=== PATIENT | female | born 1940 | race Caucasian/White ===

== ENCOUNTER 2020-10-03 20:17 | Emergency (ER) | payer MEDICARE ==
[2020-10-03] MEDS ORDERED: methylPREDNISolone SOD SUCCI 125 MG/2 ML VIAL IM STA (20:31)
[2020-10-03] MEDS ORDERED: diphenhydrAMINE 50 MG/ML 1 ML VIAL IM STA (20:31)
--- NOTE | 2020-10-03 20:37 | ED ---
General Adult HPI - General Chief complaint: Allergic Reaction Stated complaint: Bee sting Time Seen by Provider: 10/03/20 20:23 Source: patient, RN notes reviewed Mode of arrival: ambulatory Limitations: no limitations - History of Present Illness Initial comments: Patient is a pleasant 80-year-old female presenting to the emergency department following bee sting. Patient was working in the yard when she suddenly grabbed a bee that stung her and her left palm. Patient has had swelling increased over the past few hours since then. There is mild discomfort associated. Patient did take Claritin without much improvement of symptoms. No swelling of the eyes or lips or tongue or throat. No dyspnea. Patient does have history of swelling to the hand previously also following a bee sting. Patient states previously Benadryl shot has helped her and does request this. - Related Data Home Medications Medication Instructions Recorded Confirmed Aspirin EC [Ecotrin] 81 mg PO DAILY 02/06/15 02/06/15 Omeprazole [PriLOSEC] 20 mg PO AC-BRKFST 02/06/15 02/06/15 lisinopriL [Prinivil] 20 mg PO DAILY 02/06/15 02/06/15 Previous Rx's Medication Instructions Recorded predniSONE [Deltasone] 20 mg PO BID #8 tab 10/03/20 Allergies Allergy/AdvReac Type Severity Reaction Status Date / Time Penicillins Allergy Unknown Verified 10/03/20 20:21 Childhood Review of Systems ROS Statement: Those systems with pertinent positive or pertinent negative responses have been documented in the HPI. ROS Other: All systems not noted in ROS Statement are negative. Constitutional: Denies: fever Eyes: Denies: eye pain ENT: Denies: ear pain Respiratory: Denies: cough, dyspnea Cardiovascular: Denies: chest pain Endocrine: Denies: fatigue Gastrointestinal: Denies: abdominal pain Genitourinary: Denies: dysuria Musculoskeletal: Denies: back pain Skin: Denies: rash Neurological: Denies: weakness Past Medical History Past Medical History: Hypertension History of Any Multi-Drug Resistant Organisms: None Reported Past Surgical History: Cholecystectomy Additional Past Surgical History / Comment(s): bilateral arthroscopic Past Psychological History: No Psychological Hx Reported Past Alcohol Use History: Occasional Past Drug Use History: None Reported General Exam Limitations: no limitations General appearance: alert Head exam: Present: normocephalic Eye exam: Present: normal appearance, PERRL ENT exam: Present: normal oropharynx, other (No signs of angioedema of the face or lips or tongue or pharynx.) Neck exam: Present: normal inspection Respiratory exam: Present: normal lung sounds bilaterally. Absent: respiratory distress, wheezes Cardiovascular Exam: Present: regular rate, normal rhythm GI/Abdominal exam: Present: soft. Absent: tenderness Extremities exam: Present: other (Left hand and wrist edema. Cap refill less than 2 seconds. No erythema or tenderness.) Neurological exam: Present: alert Psychiatric exam: Present: normal affect, normal mood Skin exam: Present: normal color Course Vital Signs 10/03/20 20:17 Temperature 97.9 F Pulse Rate 82 Respiratory 18 Rate Blood Pressure 164/84 O2 Sat by Pulse 98 Oximetry Disposition Clinical Impression: Hymenoptera reaction Disposition: HOME SELF-CARE Condition: Stable Instructions (If sedation given, give patient instructions): Insect Bite or Sting (ED) Additional Instructions: Continue [id number] Claritin or Benadryl. Prescription for steroid has been sent to your pharmacy, [facility] on . Return for increase swelling or pain or redness, or swelling to the face or throat or tongue or lips or difficulty in breathing. Prescriptions: predniSONE [Deltasone] 20 mg PO BID #8 tab Is patient prescribed a controlled substance at d/c from ED?: No Referrals: Ramone Drew DO [Primary Care Provider] - 1-2 days Time of Disposition: 20:35
[2020-10-03 21:17] VITALS: RESP 20
[2020-10-03 21:26] VITALS: BP 154/87; PULSE 81; TEMP 98.1
== END 2020-10-03 21:24 | disposition home or self-care (01) ==
LOC: EC 20:17
DX: T63.441A Toxic effect of venom of bees, accidental (unintentional), initial encounter (principal); I10 Essential (primary) hypertension; Z79.82 Long term (current) use of aspirin; Z79.899 Other long term (current) drug therapy; Z88.0 Allergy status to penicillin
CPT/HCPCS: 99283; 96372 ×2; J1200; J2930

== ENCOUNTER → 2021-08-09 | Outpatient (CLI) | payer MEDICARE ==
--- NOTE | 2021-08-09 09:47 | MR ---
EXAMINATION TYPE: MR iac wo/w con DATE OF EXAM: 08/09/2021 COMPARISON: CT brain 05/24/2013 HISTORY: Vertigo loss hearing loss TECHNIQUE: Multiplanar, multisequence images of the brain and brainstem is performed without and with IV contras t, utilizing 9.5 mL intravenous Gadavist . FINDINGS: Diffusion weighted images demonstrate no evidence of a recent infarct or other diffusion ab normality. There mild to moderate generalized degenerative change with diffuse focal areas of abnorm al signal scattered throughout the white matter bilaterally most typical remote white matter ischemia . Midline structures demonstrate normal morphology. The craniocervical junction appears within normal limits. Post contrast images demonstrate no abnormal enhancement. No evidence of cerebellopontine an gle mass. The dural venous sinuses appear patent. Changes of chronic sinusitis are noted. Orbits are symmetric. Mastoid air cells appear clear. IMPRESSION: 1. No diagnostic evidence of cerebellopontine angle mass or schwannoma.
== END | disposition home or self-care (01) ==
LOC: RADMRIMAIN 08:33
PROVIDERS: ATTEND Otolaryngology
DX: R42 Dizziness and giddiness (principal); H91.90 Unspecified hearing loss, unspecified ear
CPT/HCPCS: 70553; A9585

== ENCOUNTER → 2021-08-15 | Outpatient (CLI) | payer MEDICARE ==
--- NOTE | 2021-08-15 14:51 | US ---
EXAMINATION TYPE: US venous doppler duplex UE LT DATE OF EXAM: 08/15/2021 COMPARISON: NONE CLINICAL HISTORY: M79.602 Pain in left arm. Pain after vaccine SIDE PERFORMED: Left arm Left Arm: Negative for DVT IMPRESSION: 1. Left upper extremity negative for deep venous thrombosis.
== END | disposition home or self-care (01) ==
LOC: RADUSWWP 13:52
PROVIDERS: ATTEND Family Medicine
DX: M79.602 Pain in left arm (principal)

== ENCOUNTER → 2022-07-18 | Outpatient (CLI) | payer MEDICARE ==
--- NOTE | 2022-07-18 13:58 | MM ---
Reason for Exam: Follow-up at short interval from prior study. Last screening mammogram was performed 6 month(s) ago. Patient History: Menarche at age 15. First Full-Term at age 22. Left ovary removed at age 52. Right ovary removed at age 52. Hysterectomy at age 52. Postmenopausal. Other cancer. Patient used Estrogen for 3 years. Patient used Progesterone for 3 years. Sister had breast cancer, age 73. Risk Values: Sparkle 5 year model risk: 3.1%. NCI Lifetime model risk: 4.8%. Prior Study Comparison: 12/22/2019 Screening Mammogram, [facility]. 12/25/2020 Screening Mammogram, [facility]. 01/17/2022 Bilateral Screening Mammogram, [facility]. Tissue Density: Left: There are scattered fibroglandular densities. Findings: Analyzed By CAD. Stable benign calcifications. Density seen previously upper outer quadrant is resolved. No new areas of abnormal density or mass. Overall Assessment: Benign, BI-RAD 2 Management: Screening Mammogram of both breasts in 6 months. A clinical breast exam by your physician is recommended on an annual basis and results should be correlated with mammographic findings. This exam should not preclude additional follow-up of suspicious palpable abnormalities. Results were given to the patient verbally at the time of exam. Electronically signed and approved by: Arley Tiwari M.D. Radiologis
== END | disposition home or self-care (01) ==
LOC: RADMAMWWP 12:38
PROVIDERS: ATTEND Family Medicine
DX: R92.8 Other abnormal and inconclusive findings on diagnostic imaging of breast (principal); Z85.89 Personal history of malignant neoplasm of other organs and systems; Z80.3 Family history of malignant neoplasm of breast
CPT/HCPCS: 77065; G0279; 77061

== ENCOUNTER 2024-01-02 14:09 | Emergency (ER) | payer MEDICARE ==
--- NOTE | 2024-01-02 14:44 | ED ---
General Adult HPI - General Chief complaint: Chest Pain Stated complaint: Intense heat chest/back Time Seen by Provider: 01/02/24 14:42 Source: patient, RN notes reviewed, old records reviewed Mode of arrival: ambulatory Limitations: no limitations - History of Present Illness Initial comments: This is an 83-year-old female presents emergency department complaining of a heat wave that starts on the right side of her chest and goes across the left and down both arms. Patient states the heat wave also goes across her back. Patient states that it is an intense heat there is no pain associated with it. Patient states that last for less than a minute and it occurred 4 times yesterday and 4 times today. Patient states there is no difficulty breathing or shortness of breath with it. Patient denies any fever chills or cough. Patient denies any diaphoretic episodes. Patient states this also occurred about 4 years ago. Patient denies any palpitations. Patient denies headache patient [place] any numbness or weakness. Patient has abdominal pain patient has nausea vomiting diarrhea. Currently patient is not experiencing any pain or discomfort or heat - Related Data Home Medications Medication Instructions Recorded Confirmed Aspirin EC [Ecotrin] 81 mg PO DAILY 02/06/15 02/06/15 Omeprazole [PriLOSEC] 20 mg PO AC-BRKFST 02/06/15 02/06/15 lisinopriL [Prinivil] 20 mg PO DAILY 02/06/15 02/06/15 Previous Rx's Medication Instructions Recorded predniSONE [Deltasone] 20 mg PO BID #8 tab 10/03/20 Allergies Allergy/AdvReac Type Severity Reaction Status Date / Time Penicillins Allergy Unknown Verified 01/02/24 14:17 Childhood Review of Systems ROS Statement: Those systems with pertinent positive or pertinent negative responses have been documented in the HPI. ROS Other: All systems not noted in ROS Statement are negative. Past Medical History Past Medical History: Hypertension History of Any Multi-Drug Resistant Organisms: None Reported Past Surgical History: Cholecystectomy Additional Past Surgical History / Comment(s): bilateral arthroscopic Past Psychological History: No Psychological Hx Reported Smoking Status: Never smoker Past Alcohol Use History: Occasional Past Drug Use History: None Reported General Exam - General Exam Comments Initial Comments: GENERAL: Patient is well-developed and well-nourished. Patient is nontoxic and well- hydrated and is in no acute distress. ENT: Neck is soft and supple. No significant lymphadenopathy is noted. Oropharynx is clear. Moist mucous membranes. Neck has full range of motion without eliciting any pain. EYES: The sclera were anicteric and conjunctiva were pink and moist. Extraocular movements were intact and pupils were equal round and reactive to light. Eyelids were unremarkable. PULMONARY: Unlabored respirations. Good breath sounds bilaterally. No audible rales rhonchi or wheezing was noted. CARDIOVASCULAR: There is a regular rate and rhythm without any murmurs gallops or rubs. ABDOMEN: Soft and nontender with normal bowel sounds. SKIN: Skin is clear with no lesions or rashes and otherwise unremarkable. NEUROLOGIC: Patient is alert and oriented x3. Cranial nerves II through XII are grossly intact. Motor and sensory are also intact. Normal speech, volume and content. Symmetrical smile. MUSCULOSKELETAL: Normal extremities with adequate strength and full range of motion. No lower extremity swelling or edema. No calf tenderness. LYMPHATICS: No significant lymphadenopathy is noted PSYCHIATRIC: Normal psychiatric evaluation. Limitations: no limitations Course Vital Signs 01/02/24 14:13 Temperature 98.5 F Pulse Rate 84 Respiratory 18 Rate Blood Pressure 160/76 O2 Sat by Pulse 97 Oximetry Medical Decision Making - Medical Decision Making EKG is interpreted by myself. EKG shows a sinus rhythm at 77 bpm parables 150 QRS is 94 QT interval 386 QTc is 418. Patient's EKG shows no ST segment ovation or depression. Was pt. sent in by a medical professional or institution (, [facility], LEAK PATCHER, urgent care, hospital, or prison...) When possible be specific @ -No Did you speak to anyone other than the patient for history (EMS, parent, family, police, friend...)? What history was obtained from this source @ -No Did you review nursing and triage notes (agree or disagree)? Why? @ -I reviewed and agree with nursing and triage notes Were old charts reviewed (outside hosp., previous admission, EMS record, old EKG, old radiological studies, urgent care reports/EKG's, prison records)? Report findings @ -I reviewed prior charts and prior lab work on this patient Differential Diagnosis (chest pain, altered mental status, abdominal pain women, abdominal pain men, vaginal bleeding, weakness, fever, dyspnea, syncope, headache, dizziness, GI bleed, back pain, seizure, CVA, palpatations, mental health, musculoskeletal)? @ -Differential Chest Pain: Stable Angina, Unstable Angina, STEMI, NSTEMI Aortic Dissection, Pneumothorax, Musculoskeletal, Esophageal Spasm GERD, Cholecystitis, Pancreatitis, Zoster, this is not meant to be an all-inclusive list. EKG interpreted by me (3pts min.). @ -As above X-rays interpreted by me (1pt min.). @ -Chest x-ray shows no acute abnormality CT interpreted by me (1pt min.). @ -None done U/S interpreted by me (1pt. min.). @ -None done What testing was considered but not performed or refused? (CT, X-rays, U/S, labs)? Why? @ -None What meds were considered but not given or refused? Why? @ -None Did you discuss the management of the patient with other professionals (professionals i.e. , PA, LEAK PATCHER, lab, RT, psych nurse, director of social media marketing, sack lifter, teacher, labor relations officer, spring encaser)? Give summary @ -No Was smoking cessation discussed for >3mins.? @ -No Was critical care preformed (if so, how long)? @ -No Were there social determinants of health that impacted care today? How? (Homelessness, low income, unemployed, alcoholism, drug addiction, transportation, low edu. Level, literacy, decrease access to med. care, usp, rehab)? @ -No Was there de-escalation of care discussed even if they declined (Discuss DNR or withdrawal of care, Hospice)? DNR status @ -No What co-morbidities impacted this encounter? (DM, HTN, Smoking, COPD, CAD, Cancer, CVA, ARF, Chemo, Hep., AIDS, mental health diagnosis, sleep apnea, morbid obesity)? @ -None Was patient admitted / discharged? Hospital course, mention meds given and route, prescriptions, significant lab abnormalities, going to OR and other pertinent info. @ -Patient was reevaluated by myself and she had no heat sensation in her chest at this time and she is in agreement with following up with her primary medical care doctor. Undiagnosed new problem with uncertain prognosis? @ -No Drug Therapy requiring intensive monitoring for toxicity (Heparin, Nitro, Insulin, Cardizem)? @ -No Were any procedures done? @ -No Diagnosis/symptom? @ -Atypical chest pain Acute, or Chronic, or Acute on Chronic? @ -Acute Uncomplicated (without systemic symptoms) or Complicated (systemic symptoms)? @ -Complicated Side effects of treatment? @ -No Exacerbation, Progression, or Severe Exacerbation? @ -No Poses a threat to life or bodily function? How? (Chest pain, [place], [place], pneumonia, PE, COPD, DKA, ARF, appy, cholecystitis, CVA, Diverticulitis, Homicidal, Suicidal, threat to staff... and all critical care pts) @ -No - Lab Data Result diagrams: 01/02/24 15:00 01/02/24 15:00 Lab Results 01/02/24 01/02/24 01/02/24 Range/Units 15:00 15:00 15:00 WBC 6.5 (3.8-10.6) k/uL RBC 4.09 (3.80-5.40) m/uL Hgb 12.4 (11.4-16.0) gm/dL Hct 37.9 (34.0-46.0) % MCV 92.7 (80.0-100.0) fL MCH 30.4 (25.0-35.0) pg MCHC 32.8 (31.0-37.0) g/dL RDW 13.2 (11.5-15.5) % Plt Count 183 (150-450) k/uL MPV 7.9 Neutrophils % 83 % Lymphocytes % 12 % Monocytes % 4 % Eosinophils % 0 % Basophils % 0 % Neutrophils # 5.4 (1.3-7.7) k/uL Lymphocytes # 0.8 L (1.0-4.8) k/uL Monocytes # 0.3 (0-1.0) k/uL Eosinophils # 0.0 (0-0.7) k/uL Basophils # 0.0 (0-0.2) k/uL PT 11.0 (10.0-12.5) sec INR 1.0 (<1.2) APTT 23.1 (22.0-30.0) sec Sodium 138 (137-145) mmol/L Potassium 4.0 (3.5-5.1) mmol/L Chloride 108 H (98-107) mmol/L Carbon Dioxide 23 (22-30) mmol/L Anion Gap 7 mmol/L BUN 20 H (7-17) mg/dL Creatinine 1.23 H (0.52-1.04) mg/dL Est GFR (CKD-EPI)AfAm 48 (>60 ml/min/1.73 sqM) Est GFR (CKD-EPI)NonAf 41 (>60 ml/min/1.73 sqM) Glucose 129 H (74-99) mg/dL Calcium 9.0 (8.4-10.2) mg/dL Magnesium 1.6 (1.6-2.3) mg/dL Total Bilirubin 0.5 (0.2-1.3) mg/dL AST 19 (14-36) U/L ALT 12 (4-34) U/L Alkaline Phosphatase 62 (38-126) U/L Troponin I (0.000-0.034) ng/mL Total Protein 5.9 L (6.3-8.2) g/dL Albumin 3.5 (3.5-5.0) g/dL 01/02/24 Range/Units 15:00 WBC (3.8-10.6) k/uL RBC (3.80-5.40) m/uL Hgb (11.4-16.0) gm/dL Hct (34.0-46.0) % MCV (80.0-100.0) fL MCH (25.0-35.0) pg MCHC (31.0-37.0) g/dL RDW (11.5-15.5) % Plt Count (150-450) k/uL MPV Neutrophils % % Lymphocytes % % Monocytes % % Eosinophils % % Basophils % % Neutrophils # (1.3-7.7) k/uL Lymphocytes # (1.0-4.8) k/uL Monocytes # (0-1.0) k/uL Eosinophils # (0-0.7) k/uL Basophils # (0-0.2) k/uL PT (10.0-12.5) sec INR (<1.2) APTT (22.0-30.0) sec Sodium (137-145) mmol/L Potassium (3.5-5.1) mmol/L Chloride (98-107) mmol/L Carbon Dioxide (22-30) mmol/L Anion Gap mmol/L BUN (7-17) mg/dL Creatinine (0.52-1.04) mg/dL Est GFR (CKD-EPI)AfAm (>60 ml/min/1.73 sqM) Est GFR (CKD-EPI)NonAf (>60 ml/min/1.73 sqM) Glucose (74-99) mg/dL Calcium (8.4-10.2) mg/dL Magnesium (1.6-2.3) mg/dL Total Bilirubin (0.2-1.3) mg/dL AST (14-36) U/L ALT (4-34) U/L Alkaline Phosphatase (38-126) U/L Troponin I <0.012 (0.000-0.034) ng/mL Total Protein (6.3-8.2) g/dL Albumin (3.5-5.0) g/dL Disposition Clinical Impression: Atypical chest pain Disposition: HOME SELF-CARE Condition: Good Instructions (If sedation given, give patient instructions): Chest Pain (ED) Is patient prescribed a controlled substance at d/c from ED?: No Referrals: Ramone Drew DO [Primary Care Provider] - 1-2 days Time of Disposition: 15:52
[2024-01-02 15:10] LABS: Basophils % (A) 0 %; Eosinophils % (A) 0 %; HCT 37.9 % (34.0-46.0); HGB 12.4 gm/dL (11.4-16.0); Lymphocytes # (A) 0.8 k/uL (1.0-4.8); Lymphocytes % (A) 12 %; MCH 30.4 pg (25.0-35.0); MCHC 32.8 g/dL (31.0-37.0); MCV 92.7 fL (80.0-100.0); Mean Platelet Volume 7.9; Monocytes # (A) 0.3 k/uL (0-1.0); Monocytes % (A) 4 %; Neutrophils # (A) 5.4 k/uL (1.3-7.7); Neutrophils % (A) 83 %; Platelet Count 183 k/uL (150-450); RBC 4.09 m/uL (3.80-5.40); RDW 13.2 % (11.5-15.5); WBC 6.5 k/uL (3.8-10.6)
--- NOTE | 2024-01-02 15:16 | XR ---
EXAMINATION TYPE: XR chest 2V DATE OF EXAM: 01/02/2024 3:12 PM CLINICAL INDICATION:Female, 83 years old with history of Chest Pain; COMPARISON: Chest radiographs from 02/06/2015 TECHNIQUE: XR chest 2V Frontal and lateral views of the chest. FINDINGS: Lungs/Pleura: There is no evidence of pleural effusion, focal consolidation, or pneumothorax. Pulmonary vascularity: Unremarkable. Heart/mediastinum: Cardiomediastinal silhouette is unremarkable. Musculoskeletal: No acute osseous pathology. Severe degeneration changes of the shoulder with osteoph yte formation and joint space narrowing. Other findings: None IMPRESSION: No acute cardiopulmonary disease/process.
[2024-01-02 15:21] LABS: Partial Thromboplastin Time 23.1 sec (22.0-30.0)
[2024-01-02 15:23] LABS: ALT 12 U/L (4-34); AST 19 U/L (14-36); African American GFR (CKD) 48 (>60 ml/min/1.73 sqM); Albumin 3.5 g/dL (3.5-5.0); Alkaline Phosphatase 62 U/L (38-126); Anion Gap 7 mmol/L; Blood Urea Nitrogen 20 mg/dL (7-17); Carbon Dioxide 23 mmol/L (22-30); Chloride 108 mmol/L (98-107); Glucose 129 mg/dL (74-99); Magnesium 1.6 mg/dL (1.6-2.3); Non-African American GFR(CKD) 41 (>60 ml/min/1.73 sqM); Sodium 138 mmol/L (137-145); Total Bilirubin 0.5 mg/dL (0.2-1.3); Total Protein 5.9 g/dL (6.3-8.2)
[2024-01-02 16:32] VITALS: BP 140/74; PULSE 82; RESP 16; TEMP 98
== END 2024-01-02 16:15 | disposition home or self-care (01) ==
LOC: EC 14:09
DX: R07.89 Other chest pain (principal); I10 Essential (primary) hypertension; Z79.82 Long term (current) use of aspirin; Z79.899 Other long term (current) drug therapy; Z88.0 Allergy status to penicillin; Z90.49 Acquired absence of other specified parts of digestive tract
CPT/HCPCS: 36415; 71046; 80053; 83735; 84484; 85025; 85610; 85730; 93005; 99285